=== PATIENT | female | born 1955 | race Caucasian/White ===

== ENCOUNTER 2018-01-21 07:43 | Day surgery (SDC) | payer BC ==
[~2018-01-21 07:43] MED LIST: Sodium Chloride 0.9% 10 ML Syringe FLUSH PRN
[2018-01-21] MEDS ORDERED: Propofol 200 MG/20 ML SDV ONE ×4 (08:19→09:32)
[2018-01-21] MEDS ORDERED: fentaNYL 250 MCG/5 ML SDV ONE ×2 (08:19→09:10)
[2018-01-21] MEDS ORDERED: Midazolam 1 MG/ML 2 ML SDV ONE ×2 (08:19→09:10)
[2018-01-21] MEDS: Lactated Ringers 1,000 ML IV SCH ×2 (08:27→13:42)
[2018-01-21] MEDS ORDERED: ceFAZolin 1 GM Vial ONE ×2 (09:10→10:20)
[2018-01-21] MEDS ORDERED: ePHEDrine 50 MG/ML SDV ONE (09:10)
--- NOTE | 2018-01-21 09:14 | PCM.PN ---
- General Info Date of Service: 01/21/18 - Review of Systems Systems Review Comment:: 62-year-old female with recently developed left groin mass which is painful. she comes for left groin exploration and removal of left groin mass with probable hernia repair. The site is examined and marked. Proposed procedure is discussed with the patient. Risks such as but not limited to bleeding, infection ,and redevelopment of the mass are discussed. She agrees to proceed. Her recent history and physical is reviewed and there is no significant change noted. - Patient Data Vitals - Most Recent: Last Vital Signs Temp 98.3 F 01/21/18 08:32 Pulse 60 01/21/18 08:32 Resp 20 01/21/18 08:32 BP 1113/75 H 01/21/18 08:32 Pulse Ox 93 L 01/21/18 08:32 Weight - Most Recent: 57.606 kg Med Orders - Current: Current Medications Lactated Ringer's (Ringers, Lactated) 1,000 mls @ 125 mls/hr IV ASDIRECTED MARYANNE Last Admin: 01/21/18 08:27 Dose: 125 mls/hr Sodium Chloride (Saline Flush) 10 ml FLUSH ASDIRECTED PRN PRN Reason: Keep Vein Open Discontinued Medications Fentanyl (Sublimaze) Confirm Administered Dose 250 mcg .ROUTE .STK-MED ONE Stop: 01/21/18 08:20 Midazolam HCl (Versed 1 Mg/Ml) Confirm Administered Dose 2 mg .ROUTE .STK-MED ONE Stop: 01/21/18 08:20 Propofol (Diprivan 20 Ml) Confirm Administered Dose 200 mg .ROUTE .STK-MED ONE Stop: 01/21/18 08:20 - Problem List Review Problem List Initiated/Reviewed/Updated: Yes - Assessment Assessment:: left groin mass probable hernia - Plan Plan:: left groin exploration with hernia repair
[2018-01-21] MEDS ORDERED: Bupivacaine 0.25%/EPINEPHrine 1:200,000 30 ML SDV INJECT ONE (09:33)
--- NOTE | 2018-01-21 11:28 | PCM.OPNOTE ---
- General Post-Op/Procedure Note Date of Surgery/Procedure: 01/21/18 Operative Procedure(s): repair strangulated left femoral hernia Findings: left femoral hernia with small tongue of incarcerated omentum with vascular compromise of the incarcerated omentum. Pre Op Diagnosis: left groin mass Post-Op Diagnosis: trangulated left femoral hernia Anesthesia Technique: Spinal Primary Surgeon: Jose Palmer Pathology: Left femoral hernia sac Left femoral hernia contents Output, Urine Amount: 0 EBL in mLs: 25 Complications: None Condition: Good Free Text/Narrative:: Intake & Output 01/20/18 01/21/18 01/21/18 22:59 06:59 14:59 Intake Total 1300 Balance 1300
[2018-01-21] MEDS ORDERED: Ketorolac 30 MG/ML SDV IVPUSH PRN (13:23)
[2018-01-21] MEDS ORDERED: Acetaminophen/HYDROcodone 325-5 MG Tab PO ONE (15:37)
--- NOTE | 2018-01-21 17:26 | OR ---
Date of Procedure: 01/21/2018 PREOPERATIVE DIAGNOSIS: Left groin mass. POSTOPERATIVE DIAGNOSIS: Strangulated left femoral hernia. OPERATION PERFORMED: Repair of strangulated left femoral hernia with mesh. INDICATIONS FOR SURGERY: This 62-year-old female was recently developed painful mass in her left groin. There has been no associated GI upset and a CT scan identified the mass to be cystic in nature, but without bowel involvement. FINDINGS: In the left groin, there is a large femoral hernia with a sac protruding through the femoral canal. There is incarcerated in this sac a tongue of omentum with the distal aspect of this tongue of omentum being dark in color from ischemia. No bowel involvement was noted. The sac wall was thick, but otherwise appeared smooth. The floor of the inguinal canal was satisfactory. DESCRIPTION OF PROCEDURE: The patient was taken to the operating room. She was given spinal anesthesia and the left groin was sterilely prepped with Betadine and draped. A linear left groin incision was made. This was carried down into the subcutaneous area and the mass was identified. Carefully, the mass was from surrounding structures and the external oblique fascia was identified, incised, and opened. Opening the external ring, the ilioinguinal nerve was identified and preserved. Persistent dissection and examination identified the mass to be a femoral hernia as it was protruding through the femoral canal. The hernia sac was opened and the contents examined. The hernia did contain an incarcerated tongue of omentum; the distal aspect of which was ischemic. The more proximal portion of the omentum was able to be accessed and this was divided above the clamps with ties of 3-0 Vicryl used to control the vascular pedicles. In this way, the ischemic portion of omentum was removed and was submitted for pathologic evaluation. The remaining omentum easily reduced back into the abdominal cavity. The hernia sac was isolated down to its narrow neck at the femoral canal and the hernia sac was suture ligated with a 2-0 Vicryl. The excess sac was amputated and the small remaining portion of the sac reduced back through the femoral canal. The floor of the inguinal canal was then repaired by securing a keyhole shaped piece of polypropylene mesh in position with the inferior edge of the mesh being secured down to the Sb ligament medial to the femoral vessels and the shelving portion of the inguinal ligament anterior to these vessels with interrupted 0 prolene. This was carried out in a manner attempting to bring the femoral canal back to its normal size, but yet not to compromise the femoral vessels. The superior edge of the mesh was secured to the internal oblique fascia near its fusion with the external oblique fascia also with interrupted 0 Prolene. The ilioinguinal nerve was passed through the keyhole defect. The tails of the mesh were secured laterally with 0 Prolene and they were trimmed and laid into the space lateral to the internal ring between the internal and external oblique fascia. This created a secure reinforcement of the floor of the inguinal canal and appeared to secure the femoral canal to minimize risk of recurrence. The wound was irrigated and then the external oblique fascia was re-approximated with a running 2-0 Vicryl. The wound was infiltrated with Marcaine. Qamar fascia was re-approximated with interrupted 3-0 Vicryl, and the skin was closed with a running 4-0 Vicryl subcuticular stitch; Steri-Strips and benzoin were applied. Antibiotic ointment and sterile dressing were placed. The patient was awakened and taken from the operating room in satisfactory condition. ESTIMATED BLOOD LOSS: 25 mL. COMPLICATIONS: None. PROGNOSIS: Good. REINA Palmer MD /[id number]
== END 2018-01-21 18:58 | disposition home or self-care (01) ==
LOC: LL.SDS 07:43
PROVIDERS: ATTEND Surgery
DX: K41.30 Unilateral femoral hernia, with obstruction, without gangrene, not specified as recurrent (principal); E78.5 Hyperlipidemia, unspecified; F17.210 Nicotine dependence, cigarettes, uncomplicated; Z88.1 Allergy status to other antibiotic agents; Z88.5 Allergy status to narcotic agent
CPT/HCPCS: A9270-GY; C1781; J0690; J1885; J2250; J2704; J3010; J7050; J7120

== ENCOUNTER 2019-07-25 14:43 | Emergency (ER) | payer MEDICARE, OTHER ==
[2019-07-25] MEDS ORDERED: Meclizine 25 MG Tab PO ONE (15:02)
[2019-07-25] MEDS: LORazepam 1 MG Tab PO ONE ×2 (15:24→15:27)
--- NOTE | 2019-07-25 15:47 | EDM.PDOC ---
ED HPI GENERAL MEDICAL PROBLEM - General Chief Complaint: General Stated Complaint: light headed, blurry vision Time Seen by Provider: 07/25/19 14:47 Source of Information: Reports: Patient, Family History Limitations: Reports: No Limitations - History of Present Illness INITIAL COMMENTS - FREE TEXT/NARRATIVE: Patient brought to ER from MRI. Was sent to MRI by local clinic provider after pt complained of 2 days vertigo. Had significant vertigo when she sat up after the procedure. This was accompanied by anxiety as well as her appearing to briefly not know where she was. By time she arrived in ER vertigo had improved. Anxiety improved. AxOx4. No focal neuro complaints Blurry vision when experiencing vertigo. No history of this in past. Also complains of "wet sensation" in right ear/right neck discomfort. No actual drainage from right ear. Denies recent URI/other illnesses. No fevers. No fall/has not hit head. Has the vertigo if she turns head to right. Also when she sits from from laying down. Denies nausea/emesis/bowel changes. Vision is fine when she does not have the vertigo. No numbness/tingling of face. No ear pain. Resp: negative for acute SOB/cough/sputum/chest pain complaints. Is smoker and has chronic smoker cough. CV: negative for palpitations/chest pain GI negative as noted above. negative for acute changes/UTI complaints/hematuria Neuro: + for vertigo like dizziness that is triggered by specific movements. No focal numbness/tingling/weakness Skin: no acute changes - Related Data Allergies Allergy/AdvReac Type Severity Reaction Status Date / Time azithromycin [From Zithromax] Allergy Other Verified 07/25/19 14:52 cefprozil [From Cefzil] Allergy Other Verified 07/25/19 14:52 codeine Allergy Other Verified 07/25/19 14:52 Home Meds: Home Meds Hydrocodone/Acetaminophen [Hydrocodon-Acetaminophen 5-325] 1 - 2 tab PO Q4HR PRN #24 tablet 01/21/18 [Rx] Amoxicillin 500 mg PO TID #21 tab 07/25/19 [Rx] Hydrocort/Neomycin/Polymyxin B [Wjomhybf-Ptewxonwz-OH Otic Susp] 10 ml .XX ASDIRECTED #1 bottle 07/25/19 [Rx] Meclizine [Antivert] 25 mg PO Q6H PRN #30 tab 07/25/19 [Rx] Past Medical History HEENT History: Reports: Other (See Below) Other HEENT History: wears glasses Cardiovascular History: Reports: High Cholesterol Other Cardiovascular History: no medications Respiratory History: Reports: Other (See Below) Other Respiratory History: chronic smoker [employer] History: Reports: Musculoskeletal History: Reports: Back Pain, Chronic Neurological History: Reports: None Endocrine/Metabolic History: Reports: None Hematologic History: Reports: None Oncologic (Cancer) History: Reports: None Dermatologic History: Reports: None - Past Surgical History GI Surgical History: Reports: Hernia, Inguinal Musculoskeletal Surgical History: Reports: Other (See Below) Other Musculoskeletal Surgeries/Procedures:: Hx. of back surgery due to pinched nerve Social & Family History - Tobacco Use Smoking Status *Q: Current Every Day Smoker Years of Tobacco use: 47 Packs/Tins Daily: 0.2 - Caffeine Use Caffeine Use: Reports: Coffee - Recreational Drug Use Recreational Drug Use: No ED ROS GENERAL - Review of Systems Review Of Systems: Comprehensive ROS is negative, except as noted in HPI. ED EXAM, GENERAL - Physical Exam Exam: See Below Exam Limited By: No Limitations General Appearance: Anxious Eye Exam: Bilateral Eye: EOMI, PERRL, Other (head rotation did not produce nystagmus) Ear Exam: Right Ear: Other (Right canal mildly swollen, tender with traction of ear for exam, some cerumen noted, possible exudate near cerumen. Left ear unremarkable except for partially blocked by cerumen) Nose: No: Nasal Deformity, Nasal Swelling, Nasal Drainage Throat/Mouth: Normal Lips, Normal Voice, No Airway Compromise Head: Atraumatic, Normocephalic Neck: Normal Inspection, Supple, Non-Tender, Full Range of Motion. No: Carotid Bruit, Lymphadenopathy (L), Lymphadenopathy (R) Respiratory/Chest: No Respiratory Distress, Lungs Clear, Normal Breath Sounds, No Accessory Muscle Use Cardiovascular: Regular Rate, Rhythm, No Murmur GI/Abdominal: Normal Bowel Sounds, Soft, Non-Tender, No Distention (Female) Exam: Deferred Rectal (Female) Exam: Deferred Back Exam: No: CVA Tenderness (L), CVA Tenderness (R), Muscle Spasm Extremities: Non-Tender, Normal Capillary Refill Neurological: Alert, Oriented, CN II-XII Intact, Normal Cognition, No Motor/ Sensory Deficits Psychiatric: Anxious Skin Exam: Warm, Dry, Intact, Normal Color Course - Vital Signs Last Recorded V/S: Last Vital Signs Temp 36.7 C 07/25/19 14:49 Pulse 66 07/25/19 15:15 Resp 16 07/25/19 15:15 BP 108/72 07/25/19 15:15 Pulse Ox 96 07/25/19 15:15 - Orders/Labs/Meds Labs: Laboratory Tests 07/25/19 07/25/19 Range/Units 12:31 15:04 D-Dimer, Quantitative < 100 (0-400) ng/mL POC Glucose 72 (65-110) mg/dl Meds: Medications Discontinued Medications Generic Name Dose Route Start Last Admin Trade Name Freq PRN Reason Stop Dose Admin Lorazepam 1 mg 07/25/19 15:02 07/25/19 15:27 Ativan PO 07/25/19 15:03 Not Given ONETIME ONE Meclizine HCl 25 mg 07/25/19 15:02 07/25/19 15:24 Antivert PO 07/25/19 15:03 25 mg ONETIME ONE Administration - Re-Assessments/Exams Free Text/Narrative Re-Assessment/Exam: Patient improved by time of arrival to ER. Had labs drawn by clinic prior to MRI. CBC/Chem/Trop unremarkable. EKG at clinic did not show acute ST changes. CRP elevated at 4. DDimer added to labs at ER. Normal limits. Stat read MRI became available, no acute abnormalities noted per Radiology. Mild chronic ischemic vessel changes noted. Given the right ear pain/vertigo when turning head to right/canal swelling suspect symptoms likely secondary to ear infection. Patient received Meclizine shortly after arrival. Will place her on Amox in addition to Cortisporin Otic Susp for treatment of OM/OE. Meclizine prn for dizziness. Precautions reviewed. To follow up as needed if symptoms suddenly worsen or if no significant improvement is noted within the next few days. Patient in agreement with plan. Departure - Departure Time of Disposition: 15:41 Disposition: Home, Self-Care 01 Condition: Good Clinical Impression: Vertigo Right middle ear infection Qualifiers: Otitis media type: unspecified Qualified Code(s): H66.91 - Otitis media, unspecified, right ear Otitis externa Qualifiers: Otitis externa type: unspecified type Chronicity: acute Laterality: right Qualified Code(s): H60.501 - Unspecified acute noninfective otitis externa, right ear - Discharge Information *PRESCRIPTION DRUG MONITORING PROGRAM REVIEWED*: Not Applicable *COPY OF PRESCRIPTION DRUG MONITORING REPORT IN PATIENT RAJESH: Not Applicable Prescriptions: Amoxicillin 500 mg PO TID #21 tab Hydrocort/Neomycin/Polymyxin B [Pyoeyilx-Bqtofmtoj-PY Otic Susp] 10 ml .XX ASDIRECTED #1 bottle Meclizine [Antivert] 25 mg PO Q6H PRN #30 tab PRN Reason: Dizziness Instructions: Otitis Externa, [id number], Vertigo, [id number] Referrals: Karely Ryan PA [Primary Care Provider] - Forms: ED Department Discharge Additional Instructions: See how you do over the next few days. Follow up with your regular clinic in 2- 3 days to get right ear rechecked. Follow up sooner as needed if you have sudden worsening problems. Sepsis Event Note - Evaluation Sepsis Screening Result: No Definite Risk - Focused Exam Vital Signs: Vital Signs Temp Pulse Resp BP Pulse Ox 07/25/19 15:15 66 16 108/72 96 07/25/19 15:00 62 20 116/72 96 07/25/19 14:49 36.7 C 58 L 21 H 130/97 H 94 L 07/25/19 14:45 62 20 130/97 H 96 Date Exam was Performed: 07/25/19 Time Exam was Performed: 17:22
== END 2019-07-25 16:00 | disposition home or self-care (01) ==
LOC: LL.ED 14:43
DX: H60.501 Unspecified acute noninfective otitis externa, right ear (principal); H66.91 Otitis media, unspecified, right ear; R42 Dizziness and giddiness; F17.210 Nicotine dependence, cigarettes, uncomplicated; Z88.5 Allergy status to narcotic agent; Z88.1 Allergy status to other antibiotic agents
CPT/HCPCS: 36415; 82962; 85379; 99284; A9270-GY

== ENCOUNTER 2019-12-25 12:25 | Emergency (ER) | payer MEDICARE, OTHER ==
--- NOTE | 2019-12-25 12:41 | EDM.PDOC ---
ED HPI GENERAL MEDICAL PROBLEM - General Chief Complaint: Eye Problems Stated Complaint: Left eye pain Time Seen by Provider: 12/25/19 12:40 Source of Information: Reports: Patient, Family (), Old Records (My [facility] complaint) History Limitations: Reports: No Limitations - History of Present Illness INITIAL COMMENTS - FREE TEXT/NARRATIVE: The patient was brought to the emergency room via private automobile by her for evaluation of nonspecific left eye discomfort with possible history of unknown foreign body in her left eye while she was mowing at home at about 1 4:00 hours. She did rinse out her eye at the time with no foreign body appreciated with this sensation now gone at this time. The patient did place an eye patch on her left eye with some mild purulent drainage after waking up this morning. She denies any visual changes, other injury, etc. The patient also denies any recent fever, cough, wheezing, dyspnea, etc.. The patient denies any chest pain/pressure, heart flutter, dizziness, orthostasis, orthopnea, diaphoresis, paresthesias, recent decreased exercise tolerance, or any other anginal-type symptoms. No recent history of abdominal pain, heartburn, nausea, diarrhea, melena, gross hematochezia, or any food intolerance, including fatty foods, etc.. She denies any gross hematuria, colic, or other UTI symptoms. Onset: Sudden Onset Date: 12/24/19 Onset Time: 14:00 Duration: Getting Worse Location: Reports: Other (Left eye) Quality: Reports: Same as Previous Episode Severity: Mild Improves with: Reports: None Worsens with: Reports: None Context: Reports: Other (As above). Denies: Sick Contact, Trauma Associated Symptoms: Reports: Rash (Constant dermatitis of her forearm secondary to skin allergy). 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) (As above) - Related Data Allergies Allergy/AdvReac Type Severity Reaction Status Date / Time azithromycin [From Zithromax] Allergy Other Verified 12/25/19 12:27 cefprozil [From Cefzil] Allergy Other Verified 12/25/19 12:27 codeine Allergy Other Verified 12/25/19 12:27 hydrocodone Allergy Cannot Verified 12/25/19 12:27 Remember Home Meds: Home Meds Calcium Carb, Citrate/Vit D3 [Calcium + D3 ER Tablet] 1 tab PO DAILY 12/25/19 [History] Polymyxin B/Trimethoprim [PolyTrim Ophth Soln] 2 drop EYELF QID #1 bottle 12/25/19 [Rx] Past Medical History HEENT History: Reports: Cataract, Hard of Hearing, Impaired Vision, Other (See Below). Denies: Allergic Rhinitis Other HEENT History: Patient wears glasses. Mild presbycusis with no current therapy. Cardiovascular History: Reports: High Cholesterol Other Cardiovascular History: Dyslipidemia with no current medical therapy. Respiratory History: Reports: Bronchitis, Recurrent, COPD Other Respiratory History: COPD by chest x-ray with no current medical therapy. Gastrointestinal History: Reports: Diverticulosis, Other (See Below) Other Gastrointestinal History: Benign duodenal lipoma. 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 Full term without complications during pregnancies or deliveries Musculoskeletal History: Reports: Arthritis, Back Pain, Chronic, Osteoarthritis, Osteoporosis Neurological History: Reports: Vertigo, Other (See Below) Other Neuro History: Mild cerebrovascular disease by MRI. Endocrine/Metabolic History: Reports: Osteopenia, Osteoporosis Hematologic History: Reports: None Oncologic (Cancer) History: Reports: None Dermatologic History: Reports: Other (See Below) Other Dermatologic History: Chronic dermatitis secondary to sun exposure. - Past Surgical History HEENT Surgical History: Reports: Cataract Surgery, Oral Surgery, Other (See Below) Other HEENT Surgeries/Procedures: Right cataract extraction. Multiple teeth excisions. GI Surgical History: Reports: Hernia, Inguinal, Other (See Below). Denies: Colonoscopy Other GI Surgeries/Procedures: Right inguinal hernia repair in 1994 with left femoral hernia repair with mesh placement on 01/21/18. She has had a ColoGuard evaluation in 2019. Female Surgical History: Reports: None. Denies: Section, D&C, Hysterectomy, Oophorectomy, Salpingo-Oophorectomy, Tubal Ligation Neurological Surgical History: Reports: Discectomy, Lumbar Spine, Other (See Below) Other Neurological Surgeries/Procedures: Discectomy secondary to radiculopathy in the lumbar region in the 1980s. Other Musculoskeletal Surgeries/Procedures:: Hx. of back surgery due to pinched nerve - Past Imaging History Past Imaging History: Reports: Cardiac Echo (Normal echocardiogram on 08/09/19 with ejection fraction of 6570 percent.), CAT Scan (CT of the abdomen and pelvis on 01/15/18.), DEXA Scan (Positive for osteoporosis on 08/17/19.), Mammogram (Last on 08/17/19.), MRI (Brain on 07/25/19.) Social & Family History - Family History Cardiac: Reports: CAD, Hypertension, HI, Other (See Below) Other Cardiac Family History: Fatal HI in maternal grandmother in her 40s with mother also having a fatal HI. Mother with hypertension. Respiratory: Reports: COPD, Other (See Below) Other Respiratory Family Hisory: Father with COPD and history of tobacco use. GI: Reports: Hepatitis, PUD, Other (See Below) Other GI Family History: Father with unknown type of liver disease secondary to hepatitis. Mother with peptic ulcer disease. Neurological: Reports: Alzheimers Disease, CVA, Dementia, Seizure, TIA, Other (See Below) Other Neurological Family History: Mother with CVA/TIA, organic brain syndrome, and history of unknown type of seizures. Endocrine/Metabolic: Reports: Diabetes, type II, Hypothyroidism, Other (See Below) Other Endocrine/Metabolic Family History: Mother with hypothyroidism. Mother with AODM. Oncologic: Reports: Cervix, Leukemia, Other (See Below) Other Oncologic Family History: Uncles with unknown type of cancer. Mother with cervical cancer requiring hysterectomy. Paternal grandfather and father with leukemia. Maternal grandfather and other paternal grandparents with unknown type of cancer. - Tobacco Use Smoking Status *Q: Current Every Day Smoker Tobacco Use Within Last Twelve Months: No Years of Tobacco use: 47 Packs/Tins Daily: 0.5 Packs/Tins Daily Comment: Started smoking at age 17. Used Tobacco, but Quit: No Smoking Cessation Information Provided To Patient: Yes Second Hand Smoke Exposure: No Second Hand Smoke Education Provided: No - Caffeine Use Caffeine Use: Reports: Coffee - Living Situation & Occupation Living situation: Reports: (4 children) Occupation: Retired (May 2019) ED ROS GENERAL - Review of Systems Review Of Systems: Comprehensive ROS is negative, except as noted in HPI. ED EXAM GENERAL W FULL EYE - Physical Exam Exam: See Below Exam Limited By: No Limitations General Appearance: Alert, WD/WN Eye Exam: Right Eye: Normal Inspection (Patient wearing glasses. No vertigo), Left Eye: Conjunctival Injection, Bilateral Eye: EOMI, Normal Fundi, PERRL Visual Acuity (R) 20/: 20 Visual Acuity (L) 20/: 25 With Correction: Yes Eyelids: Bilateral: Normal Appearance Conjunctiva & Sclera: Right: Normal Appearance, Left: Discharge (Mild), Injected (Mild) Cornea Exam: Right: Normal Appearance, Left: Corneal Abrasion (3 mm and mid inferior cornea), Examined with Flourescein Extraocular Movements: Bilateral: Intact Pupils: Normal Accommodation Pupillary Size: Bilateral: 6 mm Pupillary Reaction: Bilateral: Brisk Anterior Chamber: Bilateral: Normal Appearance Posterior Chamber: Bilateral: Normal Funduscopic Ears: Normal External Exam, Normal Canal, Normal TMs, Hearing Loss (Mild bilateral presbycusis) Nose: Normal Inspection, Normal Mucosa, No Blood Throat/Mouth: Normal Inspection, Normal Lips, Normal Teeth (Multiple missing teeth), Normal Gums, Normal Oropharynx, Normal Voice, No Airway Compromise. No: Dysphagia, Perioral Cyanosis Head: Atraumatic, Normocephalic. No: Facial Swelling, Facial Tenderness, Sinus Tenderness Neck: Normal Inspection, Supple, Non-Tender, Full Range of Motion. No: Lymphadenopathy (L), Lymphadenopathy (R), Thyromegaly Respiratory/Chest: No Respiratory Distress, Lungs Clear, Normal Breath Sounds, No Accessory Muscle Use, Chest Non-Tender. No: Pleural Rub, Retractions Cardiovascular: Normal Peripheral Pulses, Regular Rate, Rhythm, No Edema, No Gallop, No JVD, No Murmur, No Rub. No: Gallop/S3, Gallop/S4, Friction Rub GI/Abdominal: Normal Bowel Sounds, Soft, Non-Tender, No Organomegaly, No Distention, No Abnormal Bruit, No Mass. No: Guarding (Male) Exam: Deferred (Female) Exam: Deferred Extremities: Normal Range of Motion, Non-Tender, No Pedal Edema, Normal Capillary Refill, Other (Multiple erosions and excoriations on the extensor surfaces of the forearms bilaterally secondary to sun exposure). No: Yanet's Sign Neurological: Alert, Oriented, CN II-XII Intact, Normal Cognition, Normal Gait, No Motor/Sensory Deficits Psychiatric: Normal Affect, Normal Mood Skin Exam: Wound/Incision (As above). No: Diaphoretic Lymphatic: No Adenopathy ED EYE w/ Add Procedure - Eye Procedure Alcaine Drops Administered: Yes Eye Irrigated w/ Saline (ccs): 30 Course - Vital Signs Last Recorded V/S: Last Vital Signs Temp 36.8 C 12/25/19 13:23 Pulse 66 12/25/19 13:23 Resp 20 12/25/19 13:23 BP 136/70 12/25/19 13:23 Pulse Ox 95 12/25/19 13:23 Vital Signs - 24 hr 12/25/19 13:23 Temperature [ 36.8 C Temporal] Pulse, 66 Peripheral [ Right Pulse Oximetry] Respiratory 20 Rate Blood Pressure 136/70 [Right Upper Arm] O2 Sat by Pulse 95 Oximetry - Orders/Labs/Meds Orders: Active Orders 24 hr Category Date Time Status Vaccines to be Administered [RC] PER UNIT ROUTINE Care 12/25/19 13:06 Active Obtain Past Medical Record [OM.PC] Routine Oth 12/25/19 12:42 Active Labs: None Meds: Medications Discontinued Medications Generic Name Dose Route Start Last Admin Trade Name Freq PRN Reason Stop Dose Admin Balanced Salt Solution 30 ml 12/25/19 12:42 12/25/19 12:44 Eye Stream Eye Rinse EYELF 12/25/19 12:43 30 ml ONETIME ONE Administration Diphtheria/Tetanus/Acell Pertussis 0.5 ml 12/25/19 13:06 12/25/19 13:17 Adacel IM 12/25/19 13:07 0.5 ml .ONCE ONE Administration Tetracaine HCl 1 ml 12/25/19 12:46 12/25/19 12:50 Tetracaine 0.5% Steri-Unit Nury EYELF 12/25/19 12:47 1 ml ASDIRECTED ONE Administration - Radiology Interpretation Free Text/Narrative:: None Departure - Departure Time of Disposition: 13:45 Disposition: Home, Self-Care 01 Condition: Good Clinical Impression: Dermatitis, Tobacco abuse counseling, Dyslipidemia Conjunctivitis Qualifiers: Conjunctivitis type: acute Acute conjunctivitis type: bacterial Laterality: left Qualified Code(s): H10.32 - Unspecified acute conjunctivitis, left eye Corneal abrasion Qualifiers: Encounter type: initial encounter Laterality: left Qualified Code(s): S05.02XA - Injury of conjunctiva and corneal abrasion without foreign body, left eye, initial encounter COPD (chronic obstructive pulmonary disease) Qualifiers: COPD type: emphysema Emphysema type: panlobular Qualified Code(s): J43.1 - Panlobular emphysema Osteoarthritis Qualifiers: Osteoarthritis location: multiple joints Osteoarthritis type: primary Qualified Code(s): M89.49 - Other hypertrophic osteoarthropathy, multiple sites - Discharge Information *PRESCRIPTION DRUG MONITORING PROGRAM REVIEWED*: Not Applicable *COPY OF PRESCRIPTION DRUG MONITORING REPORT IN PATIENT ARJESH: Not Applicable Prescriptions: Polymyxin B/Trimethoprim [PolyTrim Ophth Soln] 2 drop EYELF QID #1 bottle Instructions: Steps to Quit Smoking, [id number], Bacterial Conjunctivitis, Adult, [id number], Health Risks of Smoking, Polymyxin B; Trimethoprim eye drops, solution, Corneal Abrasion, [id number] Referrals: Moriah Tapia PA-C [Primary Care Provider] - Forms: ED Department Discharge Additional Instructions: 1. Follow up with your regular provider in 3-5 days as needed, if symptoms persist. Bring these discharge instructions with you to that visit. 2. Polytrim eyedrops 2 drops in the affected eye 4 times a day with every 2 margie rs as needed for at least 5 days AND until 48 hours after complete resolution of symptoms as directed. You may use additional OTC artificial tears as needed as per label instructions. 3. Avoid sun exposure including wearing long sleeve shirts/clothing, use of sunscreen, etc. as discussed. 4. Tylenol 650 mg by mouth every 4 hours and/or OTC ibuprofen 2-3 tabs by mouth every 6 hours with food as directed./needed. You may stagger these medications for 48-72 hours only, which essentially means that you are receiving a pain medication about every 2 hours. 5. Stop all tobacco use KULWANT as directed/per provided information and consider contacting Quit LIne, etc.. 6. Immediately after this visit verify that your cellular telephone's voicemail has been activated and is empty. Also verify that your home telephone's answering machine is operating properly and has space to receive messages. Note that it is sometimes necessary for us to be able to contact you at a later date to discuss your medical care. 7. Please remember that we are ALWAYS here for you and want to answer any questions you may have. Feel free to call the hospital any time and we call you back KULWANT. Sepsis Event Note (ED) - Focused Exam Vital Signs: Vital Signs Temp Pulse Resp BP Pulse Ox 12/25/19 13:23 36.8 C 66 20 136/70 95 - Problem List & Annotations (1) Corneal abrasion SNOMED Code(s): 61460416 Code(s): S05.00XA - INJ CONJUNCTIVA AND CORNEAL ABRASION W/O FB, UNSP EYE, INIT Status: Acute Priority: High Onset Date: ~12/24/19 Annotation/Co mment:: No foreign body by extensive eye exam as above. Note corneal abrasion. DTaP given. Qualifiers: Encounter type: initial encounter Laterality: left Qualified Code(s): S05.02XA - Injury of conjunctiva and corneal abrasion without foreign body, left eye, initial encounter (2) Conjunctivitis SNOMED Code(s): 6966279 Code(s): H10.9 - UNSPECIFIED CONJUNCTIVITIS Status: Acute Priority: High Onset Date: 12/25/19 Annotation/Comment:: Polytrim ophthalmic solution prescribed with emergency room prescription provided. Qualifiers: Conjunctivitis type: acute Acute conjunctivitis type: bacterial Laterality: left Qualified Code(s): H10.32 - Unspecified acute conjunctivitis, left eye (3) Dermatitis SNOMED Code(s): 818126546 Code(s): L30.9 - DERMATITIS, UNSPECIFIED Status: Chronic Priority: Medium Annotation/Comment:: Patient and her were counseled on various strategies to treat her solar dermatitis. No local signs of infection. (4) Tobacco abuse counseling SNOMED Code(s): 313251030, 970440257, 279300507 Code(s): Z71.6 - TOBACCO ABUSE COUNSELING Status: Chronic Priority: Medium Annotation/Comment:: Tobacco cessation strongly encouraged with information provided at discharge. (5) Dyslipidemia SNOMED Code(s): 527653545 Code(s): E78.5 - HYPERLIPIDEMIA, UNSPECIFIED Status: Chronic Priority: Medium Annotation/Comment:: Not currently under therapy. Continue to observe closely by her regular provider. (6) COPD (chronic obstructive pulmonary disease) SNOMED Code(s): 13174338 Code(s): J44.9 - CHRONIC OBSTRUCTIVE PULMONARY DISEASE, UNSPECIFIED Status: Chronic Priority: Medium Annotation/Comment:: COPD by previous chest x-rays. No recent fever or bronchitic type symptoms. Note tobacco use history as above. Consider PFTs. No current medical therapy. Qualifiers: COPD type: emphysema Emphysema type: panlobular Qualified Code(s): J43.1 - Panlobular emphysema (7) Osteoarthritis SNOMED Code(s): 582373307 Code(s): M19.90 - UNSPECIFIED OSTEOARTHRITIS, UNSPECIFIED SITE Status: Chronic Priority: Medium Annotation/Comment:: Stable by history with additional history of osteoporosis. Qualifiers: Osteoarthritis location: multiple joints Osteoarthritis type: primary Qualified Code(s): M89.49 - Other hypertrophic osteoarthropathy, multiple sites - Problem List Review Problem List Initiated/Reviewed/Updated: Yes - My Orders Last 24 Hours: My Active Orders 12/25/19 12:42 Obtain Past Medical Record [OM.PC] Routine 12/25/19 13:06 Vaccines to be Administered [RC] PER UNIT ROUTINE - Assessment/Plan Last 24 Hours: My Active Orders 12/25/19 12:42 Obtain Past Medical Record [OM.PC] Routine 12/25/19 13:06 Vaccines to be Administered [RC] PER UNIT ROUTINE Assessment:: As above. Plan: As above. Extensive precautions were given to the patient and her , who are in agreement with the treatment plan. See Patient Instructions for further treatment and plan.
[2019-12-25] MEDS ORDERED: Balanced Salt Solution Ophth Irrig 30 ML Bottle EYELF ONE (12:42)
[2019-12-25] MEDS ORDERED: Tetracaine HCl/PF 0.5% 4 ML Bottle EYELF ONE (12:46)
[2019-12-25] MEDS ORDERED: Diphtheria,Pertussis(Acell),Tetanus Vaccine 0.5 ML SDV IM ONE (13:06)
== END 2019-12-25 13:45 | disposition home or self-care (01) ==
LOC: LL.ED 12:25
DX: S05.02XA Injury of conjunctiva and corneal abrasion without foreign body, left eye, initial encounter (principal); J43.1 Panlobular emphysema; M89.49 Other hypertrophic osteoarthropathy, multiple sites; H10.022 Other mucopurulent conjunctivitis, left eye; E78.5 Hyperlipidemia, unspecified; L30.9 Dermatitis, unspecified; Z71.6 Tobacco abuse counseling; Z23 Encounter for immunization; F17.210 Nicotine dependence, cigarettes, uncomplicated; Z88.5 Allergy status to narcotic agent; Z88.1 Allergy status to other antibiotic agents; X58.XXXA Exposure to other specified factors, initial encounter
CPT/HCPCS: 90471; 90715; 99283-25

== ENCOUNTER 2021-06-29 14:24 | Emergency (ER) | payer MEDICARE, OTHER ==
[2021-06-29 15:17] LABS: RESPIRATORY SYNCYTIAL VIR NAA NEGATIVE (NEGATIVE)
[2021-06-29 15:18] LABS: CORONAVIRUS COVID-19 NAA POSITIVE (NEGATIVE)
[2021-06-29 16:04] LABS: ANION GAP 11.6 meq/L (7-15); CHLORIDE,CL 104 mmol/L (98-107); SODIUM,NA 140 mmol/L (136-145)
== END 2021-06-29 16:55 | disposition home or self-care (01) ==
LOC: LL.ED 14:24
DX: U07.1 COVID-19 (principal); E78.00 Pure hypercholesterolemia, unspecified; J44.9 Chronic obstructive pulmonary disease, unspecified; Z72.0 Tobacco use; Z88.5 Allergy status to narcotic agent; Z88.1 Allergy status to other antibiotic agents; Z88.8 Allergy status to other drugs, medicaments and biological substances
CPT/HCPCS: 0241U; 36415; 80053; 82728; 85025; 85379; 85610; 99283